=== PATIENT | male | born 1990 | race African-American/Black ===

== ENCOUNTER → 2024-02-29 | Emergency (ER) | payer OTHER ==
[~2024-02-29] MED LIST: CYCL10TA9 PO; OXYC-128 PO
== END | disposition left against medical advice (07) ==
LOC: ER 08:23
DX: Z04.1 Encounter for examination and observation following transport accident (principal); Z53.21 Procedure and treatment not carried out due to patient leaving prior to being seen by health care provider

== ENCOUNTER 2024-03-01 11:27 | Emergency (ER) | payer OTHER ==
[~2024-03-01] VITALS: Ht 190.5 cm; Wt 83.9 kg
[2024-03-01] MEDS ORDERED: OXYC-128 PO (11:50)
[2024-03-01] MEDS ORDERED: CYCL10TA9 PO (11:50)
[2024-03-01 12:23] VITALS: BP 143/97; TEMP 98.3; O2SAT 99
== END 2024-03-01 12:02 | disposition home or self-care (01) ==
LOC: ER 11:40
DX: G89.29 Other chronic pain (principal); M54.2 Cervicalgia; Z88.6 Allergy status to analgesic agent; Z91.148 Patient's other noncompliance with medication regimen for other reason; V89.2XXA Person injured in unspecified motor-vehicle accident, traffic, initial encounter; Y93.89 Activity, other specified; Y92.89 Other specified places as the place of occurrence of the external cause; Y99.8 Other external cause status